=== PATIENT | male | born 1965 | race Caucasian/White ===

== ENCOUNTER 2017-07-21 14:15 | Emergency (ER) | payer MEDICAID ==
[~2017-07-21] VITALS: Ht 193 cm; Wt 65.5 kg
[2017-07-21 14:26] VITALS: BP 137/79
[2017-07-21] MEDS ORDERED: KETOROLAC 30 MG/1 ML IM ONE (15:00)
[2017-07-21] MEDS ORDERED: KETOROLAC 30 MG/1 ML ONE (15:01)
[2017-07-22] MEDS ORDERED: IBUP200C5 PO (14:01)
== END 2017-07-21 15:17 | disposition home or self-care (01) ==
LOC: ED 15:11
DX: K02.9 Dental caries, unspecified (principal); Z59.9 Problem related to housing and economic circumstances, unspecified
CPT/HCPCS: 96372; 99283; J1885

== ENCOUNTER 2017-07-22 13:49 | Emergency (ER) | payer MEDICAID ==
[~2017-07-22] VITALS: Ht 193 cm; Wt 68.5 kg
[2017-07-22] MEDS ORDERED: IBUP200C5 PO (14:01)
[2017-07-22] MEDS ORDERED: KETOROLAC 30 MG/1 ML ONE (14:24)
[2017-07-22] MEDS ORDERED: KETOROLAC 30 MG/1 ML IM ONE (14:30)
[2017-07-22 14:51] VITALS: BP 146/88
== END 2017-07-22 14:57 | disposition home or self-care (01) ==
LOC: ED 14:49
DX: K02.9 Dental caries, unspecified (principal); F17.210 Nicotine dependence, cigarettes, uncomplicated
CPT/HCPCS: 96372; 99283; J1885

== ENCOUNTER 2017-09-25 14:15 | Emergency (ER) | payer MEDICAID ==
[~2017-09-25] VITALS: Ht 185.4 cm; Wt 64.5 kg
[~2017-09-25 14:15] MED LIST: IBUP200C5 PO
[2017-09-25 14:25] VITALS: BP 122/74
== END 2017-09-25 14:33 | disposition home or self-care (01) ==
LOC: ED 14:27
DX: B86 Scabies (principal); F17.200 Nicotine dependence, unspecified, uncomplicated
CPT/HCPCS: 99283

== ENCOUNTER 2017-10-18 05:24 | Emergency (ER) | payer MEDICAID ==
[~2017-10-18] VITALS: Ht 193 cm; Wt 65.8 kg
[~2017-10-18 05:24] MED LIST changes: +IBUP-1623 PO; -IBUP200C5 PO
[2017-10-18 05:27] VITALS: BP 137/72
== END 2017-10-18 07:19 | disposition home or self-care (01) ==
LOC: ED 05:42
DX: J44.1 Chronic obstructive pulmonary disease with (acute) exacerbation (principal)
CPT/HCPCS: 71045; 99283

== ENCOUNTER 2018-09-25 13:11 | Emergency (ER) | payer MEDICAID ==
[~2018-09-25] VITALS: Ht 193 cm; Wt 73.0 kg
[2018-09-25 15:43] VITALS: BP 117/65
== END 2018-09-25 15:46 | disposition home or self-care (01) ==
LOC: ED 13:36
DX: K25.3 Acute gastric ulcer without hemorrhage or perforation (principal); F17.200 Nicotine dependence, unspecified, uncomplicated; K21.9 Gastro-esophageal reflux disease without esophagitis
CPT/HCPCS: 36415; 80053; 83690; 84484; 85025; 93005; 99284

== ENCOUNTER 2018-10-16 19:32 | Emergency (ER) | payer MEDICAID ==
[~2018-10-16] VITALS: Ht 193 cm; Wt 72.0 kg
[2018-10-16 21:19] VITALS: BP 130/74
== END 2018-10-16 21:34 | disposition home or self-care (01) ==
LOC: ED 21:23
DX: M25.512 Pain in left shoulder (principal); J44.9 Chronic obstructive pulmonary disease, unspecified; F17.200 Nicotine dependence, unspecified, uncomplicated
CPT/HCPCS: 93005; 99283

== ENCOUNTER 2019-04-03 18:38 | Emergency (ER) | payer MEDICAID ==
[~2019-04-03] VITALS: Ht 193 cm; Wt 67.0 kg
--- NOTE | 2019-04-03 19:04 | NUR ---
pt to room from lobby
--- NOTE | 2019-04-03 19:12 | NUR ---
C/O INTERMITTENT ABD PAIN RADIATING TO BACK. NO MED TAKEN FOR SX TODAY. LAST ORAL INTAKE: 1 HR [employer]. DENIES ETOH INTAKE.
[2019-04-03 20:03] LABS: BASOPHILS # (AUTO) 0.09 x10^3/uL (0-0.1); BASOPHILS % (AUTO) 1 % (0-1); EOSINOPHILS # (AUTO) 0.35 x10^3/uL (0-0.4); EOSINOPHILS % (AUTO) 4 % (1-7); LYMPHOCYTES # (AUTO) 1.42 x10^3/uL (1-3.4); LYMPHOCYTES % (AUTO) 17 % (22-44); MD NO; MEAN CORPUSCULAR HEMOGLOBIN 31.4 pg (27.5-34.5); MEAN CORPUSCULAR HGB CONC 32.9 g/dL (33.2-36.2); MEAN CORPUSCULAR VOLUME 95.6 fL (81-97); MEAN PLATELET VOLUME 7.5 fL (7.4-10.4); MONOCYTES # (AUTO) 0.42 x10^3/uL (0.2-0.8); MONOCYTES % (AUTO) 5 % (2-9); NEUTROPHILS # (AUTO) 6.26 x10^3/uL (1.8-6.8); NEUTROPHILS % (AUTO) 73 % (42-75); PLATELET COUNT 355 x10^3/uL (130-400); RED BLOOD COUNT 4.09 x10^6/uL (4.38-5.82); RED CELL DISTRIBUTION WIDTH 13.9 % (9.4-14.8)
[2019-04-03 20:04] LABS: ALANINE AMINOTRANSFERASE 11 U/L (12-78); ALBUMIN 3.2 g/dL (3.4-5.0); ANION GAP 5 mmol/L (5-15); CALCIUM 8.7 mg/dL (8.5-10.1); CHLORIDE 108 mmol/L (98-107); CREATININE 1.03 mg/dL (0.7-1.3)
[2019-04-03 20:08] LABS: ALKALINE PHOSPHATASE 60 U/L (45-117); BILIRUBIN,TOTAL 0.3 mg/dL (0.2-1.0); TOTAL PROTEIN 6.9 g/dL (6.4-8.2); TROPONIN I < 0.015 ng/mL (0.000-0.045)
[2019-04-03 20:16] VITALS: BP 117/67
--- NOTE | 2019-04-03 20:45 | NUR ---
PT REQUESTED "SOMETHING TO SETTLE MY STOMACH". WILL NOTIFY DR ANDERSON.
[2019-04-03] MEDS ORDERED: MAALOX/HYOSCYAMINE/LIDOCAINE 45 ML BTL ONE (20:52)
[2019-04-03] MEDS ORDERED: MAALOX/HYOSCYAMINE/LIDOCAINE 45 ML BTL PO ONE (21:00)
== END 2019-04-03 21:05 | disposition home or self-care (01) ==
LOC: ED 20:54
DX: K21.0 Gastro-esophageal reflux disease with esophagitis (principal); J44.9 Chronic obstructive pulmonary disease, unspecified; F17.200 Nicotine dependence, unspecified, uncomplicated; Z87.11 Personal history of peptic ulcer disease
CPT/HCPCS: 36415; 71045; 80053; 83690; 84484; 85025; 93005; 99284

== ENCOUNTER 2019-08-22 23:21 | Emergency (ER) | payer MEDICAID ==
[~2019-08-22] VITALS: Ht 193 cm; Wt 64.3 kg
--- NOTE | 2019-08-22 23:36 | NUR ---
PT IN [facility] WITH DR. SHARMA AT FOR PT HISTORY AND ASSESSMENT. AWAITING ORDERS AT THIS TIME. PT WITH CALL LIGHT WITHIN REACH.
--- NOTE | 2019-08-22 23:45 | NUR ---
PT ATTACHED TO CARDIAC AND VS MONITORS. VSS AT THIS TIME.
[2019-08-22 23:59] LABS: BASOPHILS # (AUTO) 0.04 x10^3/uL (0-0.1); BASOPHILS % (AUTO) 1 % (0-1); EOSINOPHILS # (AUTO) 0.29 x10^3/uL (0-0.4); EOSINOPHILS % (AUTO) 4 % (1-7); LYMPHOCYTES # (AUTO) 1.66 x10^3/uL (1-3.4); LYMPHOCYTES % (AUTO) 23 % (22-44); MD NO; MEAN CORPUSCULAR HEMOGLOBIN 30.8 pg (27.5-34.5); MEAN CORPUSCULAR HGB CONC 32.8 g/dL (33.2-36.2); MEAN PLATELET VOLUME 7.4 fL (7.4-10.4); MONOCYTES # (AUTO) 0.48 x10^3/uL (0.2-0.8); MONOCYTES % (AUTO) 7 % (2-9); NEUTROPHILS # (AUTO) 4.66 x10^3/uL (1.8-6.8); NEUTROPHILS % (AUTO) 65 % (42-75); PLATELET COUNT 339 x10^3/uL (130-400); RED BLOOD COUNT 4.02 x10^6/uL (4.38-5.82)
[2019-08-23 00:11] LABS: ALBUMIN 3.1 g/dL (3.4-5.0); ANION GAP 4 mmol/L (5-15); CALCIUM 8.5 mg/dL (8.5-10.1); CHLORIDE 107 mmol/L (98-107)
[2019-08-23 00:16] LABS: ALANINE AMINOTRANSFERASE 12 U/L (12-78); ALKALINE PHOSPHATASE 53 U/L (45-117); BILIRUBIN,TOTAL 0.5 mg/dL (0.2-1.0); CREATININE 0.86 mg/dL (0.7-1.3); TOTAL PROTEIN 7.1 g/dL (6.4-8.2); TROPONIN I < 0.015 ng/mL (0.000-0.045)
[2019-08-23 00:25] VITALS: BP 106/81
--- NOTE | 2019-08-23 00:42 | NUR ---
PT D/C WITH D/C SUMMARY AND SCRIPTS. ALL QUESTIONS ANSWERED. PT PIV D/C WITH TIP INTACT. PT DENIES ANY OTHER NEEDS PERTAINING TO THIS VISIT. PT AMBULATES TO REGISTRATION DESK WITH STEADY GAIT FOR D/C HOME.
== END 2019-08-23 01:11 | disposition home or self-care (01) ==
LOC: ED 23:35
DX: R07.89 Other chest pain (principal); R05 Cough; R94.31 Abnormal electrocardiogram [ECG] [EKG]; K21.9 Gastro-esophageal reflux disease without esophagitis; J44.9 Chronic obstructive pulmonary disease, unspecified; Z87.11 Personal history of peptic ulcer disease
CPT/HCPCS: 36415; 71045; 80053; 84484; 85025; 93005; 99285

== ENCOUNTER 2019-09-27 00:53 | Emergency (ER) | payer MEDICAID ==
[~2019-09-27] VITALS: Ht 193 cm; Wt 73.0 kg
[2019-09-27 00:55] VITALS: BP 123/60
--- NOTE | 2019-09-27 00:59 | NUR ---
Pt presents to ed c/o abd pain "it just feels like im hungry all the time, no matter how much i eat." States hx of ulcers and "i should be taking an antacids, but i dont." Denies bloody stool or emesis. Denies hypotensive s/s. Monitoring applied. VSS. Call light within reach.
--- NOTE | 2019-09-27 01:16 | NUR ---
Pt given bag of chips and sandwich per ERP request. Pt asked if he wants pain medicine and he said yes "i want food for the pain."
--- NOTE | 2019-09-27 01:22 | NUR ---
Report to Shashank barron.
[2019-09-27 01:27] LABS: BASOPHILS # (AUTO) 0.03 x10^3/uL (0-0.1); BASOPHILS % (AUTO) 1 % (0-1); EOSINOPHILS # (AUTO) 0.43 x10^3/uL (0-0.4); EOSINOPHILS % (AUTO) 7 % (1-7); LYMPHOCYTES # (AUTO) 1.82 x10^3/uL (1-3.4); LYMPHOCYTES % (AUTO) 28 % (22-44); MD NO; MEAN CORPUSCULAR HEMOGLOBIN 30.8 pg (27.5-34.5); MEAN CORPUSCULAR HGB CONC 32.6 g/dL (33.2-36.2); MEAN PLATELET VOLUME 7.1 fL (7.4-10.4); MONOCYTES # (AUTO) 0.48 x10^3/uL (0.2-0.8); MONOCYTES % (AUTO) 7 % (2-9); NEUTROPHILS # (AUTO) 3.73 x10^3/uL (1.8-6.8); NEUTROPHILS % (AUTO) 58 % (42-75); PLATELET COUNT 407 x10^3/uL (130-400); RED BLOOD COUNT 4.39 x10^6/uL (4.38-5.82)
[2019-09-27 01:37] LABS: ALANINE AMINOTRANSFERASE 24 U/L (12-78); ANION GAP 5 mmol/L (5-15); CALCIUM 8.3 mg/dL (8.5-10.1); CHLORIDE 107 mmol/L (98-107)
[2019-09-27 01:39] LABS: ALKALINE PHOSPHATASE 48 U/L (45-117); BILIRUBIN,TOTAL 0.1 mg/dL (0.2-1.0)
== END 2019-09-27 02:02 | disposition home or self-care (01) ==
LOC: ED 01:15
DX: K21.9 Gastro-esophageal reflux disease without esophagitis (principal); R10.84 Generalized abdominal pain; F17.210 Nicotine dependence, cigarettes, uncomplicated; J44.9 Chronic obstructive pulmonary disease, unspecified; Z72.9 Problem related to lifestyle, unspecified
CPT/HCPCS: 36415; 80053; 83690; 85025; 99283; 99406

== ENCOUNTER 2019-09-27 06:08 | Emergency (ER) | payer MEDICAID ==
[~2019-09-27] VITALS: Ht 185.4 cm; Wt 65.9 kg
[2019-09-27] MEDS ORDERED: MAALOX/HYOSCYAMINE/LIDOCAINE 45 ML BTL ONE (06:56)
[2019-09-27] MEDS ORDERED: MAALOX/HYOSCYAMINE/LIDOCAINE 45 ML BTL PO ONE (07:00)
--- NOTE | 2019-09-27 07:02 | NUR ---
REPORT FROM AJAY PERALTA. PT MEDICATED PER ORDERS.
[2019-09-27 07:45] VITALS: BP 139/67
--- NOTE | 2019-09-27 07:45 | NUR ---
PT D/C'D PER ORDERS. GIVEN FOOD PRIOR TO D/C. PT HAS ALL OWN BELONGINGS UPON D/C.
== END 2019-09-27 07:47 | disposition home or self-care (01) ==
LOC: ED 06:59
DX: K29.00 Acute gastritis without bleeding (principal); K21.9 Gastro-esophageal reflux disease without esophagitis; J44.9 Chronic obstructive pulmonary disease, unspecified
CPT/HCPCS: 99283

== ENCOUNTER 2019-11-10 05:21 | Emergency (ER) | payer MEDICAID ==
[~2019-11-10] VITALS: Ht 193 cm; Wt 65.0 kg
--- NOTE | 2019-11-10 05:29 | NUR ---
PT BIB [facility] FOR EPIGASTRIC PAIN. PT HAS A HISTORY OF GERD, WAS SEEN HERE RECCENTLY FOR SAME THING, PT STATES MEDICATIONS GOT STOLEN. C/O 10/10 EPIGASTRIC PAIN. GI/ FUNCTION UNCHANGED ACCORDING TO PT PT PLACED ON SPO2/BP MONITORING. VSS. WCTM. WAITING FOR ERP EVAL.
[2019-11-10] MEDS ORDERED: MAALOX/HYOSCYAMINE/LIDOCAINE 45 ML BTL ONE (05:51)
[2019-11-10] MEDS ORDERED: FAMOTIDINE 20 MG TABLET ONE (05:51)
[2019-11-10] MEDS ORDERED: MAALOX/HYOSCYAMINE/LIDOCAINE 45 ML BTL PO ONE (06:00)
[2019-11-10] MEDS ORDERED: FAMOTIDINE 20 MG TABLET PO ONE (06:00)
[2019-11-10 06:04] VITALS: BP 139/70
--- NOTE | 2019-11-10 06:30 | NUR ---
Patient given discharge instructions and they have confirmed that they understand the instructions. Patient ambulatory with steady gait. DENIES ADDITIONAL NEEDS OR QEUSTIONS. NO BELONGINGS LEFT IN ROOM AT [facility].
== END 2019-11-10 06:33 | disposition home or self-care (01) ==
LOC: ED 06:19
DX: K21.9 Gastro-esophageal reflux disease without esophagitis (principal); I45.10 Unspecified right bundle-branch block; G89.29 Other chronic pain; R10.13 Epigastric pain; R11.0 Nausea; J44.9 Chronic obstructive pulmonary disease, unspecified
CPT/HCPCS: 93005; 99283

== ENCOUNTER 2019-11-29 08:14 | Emergency (ER) | payer MEDICAID ==
[~2019-11-29] VITALS: Ht 193 cm; Wt 64.4 kg
[2019-11-29 08:15] VITALS: BP 107/57
[2019-11-29] MEDS ORDERED: ASPIRIN 81 MG TABLET CHEW ONE (08:56)
[2019-11-29] MEDS ORDERED: ASPIRIN 81 MG TABLET CHEW PO ONE (09:00)
[2019-11-29 09:20] LABS: BASOPHILS # (AUTO) 0.03 x10^3/uL (0-0.1); BASOPHILS % (AUTO) 1 % (0-1); EOSINOPHILS # (AUTO) 0.39 x10^3/uL (0-0.4); EOSINOPHILS % (AUTO) 8 % (1-7); LYMPHOCYTES # (AUTO) 1.02 x10^3/uL (1-3.4); LYMPHOCYTES % (AUTO) 22 % (22-44); MD NO; MEAN CORPUSCULAR HEMOGLOBIN 30.5 pg (27.5-34.5); MEAN CORPUSCULAR HGB CONC 32.2 g/dL (33.2-36.2); MONOCYTES # (AUTO) 0.32 x10^3/uL (0.2-0.8); MONOCYTES % (AUTO) 7 % (2-9); NEUTROPHILS # (AUTO) 2.82 x10^3/uL (1.8-6.8); NEUTROPHILS % (AUTO) 62 % (42-75); PLATELET COUNT 371 x10^3/uL (130-400); RED BLOOD COUNT 4.23 x10^6/uL (4.38-5.82); RED CELL DISTRIBUTION WIDTH 13.8 % (9.4-14.8)
[2019-11-29 09:34] LABS: ALBUMIN 3.1 g/dL (3.4-5.0); ANION GAP 4 mmol/L (5-15); CALCIUM 8.7 mg/dL (8.5-10.1); CHLORIDE 110 mmol/L (98-107)
[2019-11-29 09:38] LABS: CREATININE 0.86 mg/dL (0.7-1.3); TROPONIN I < 0.015 ng/mL (0.000-0.045)
== END 2019-11-29 10:33 | disposition home or self-care (01) ==
LOC: ED 09:09
DX: R07.89 Other chest pain (principal); F17.200 Nicotine dependence, unspecified, uncomplicated; Y04.0XXA Assault by unarmed brawl or fight, initial encounter; Y92.410 Unspecified street and highway as the place of occurrence of the external cause; Y99.8 Other external cause status; Y93.89 Activity, other specified
CPT/HCPCS: 36415; 71045; 80048; 82040; 84484; 85025; 93005; 99285

== ENCOUNTER 2020-07-23 22:09 | Emergency (ER) | payer MEDICAID ==
[~2020-07-23] VITALS: Ht 162.6 cm; Wt 69.1 kg
[2020-07-23 22:16] VITALS: BP 139/69
--- NOTE | 2020-07-23 22:24 | NUR ---
AMIRAH [place] FROM 09/10. PT C/O ABD PAIN, N/V. SEEN THIS AM AT [facility] FOR SAME. CROCHE[facility]: FSBG 129, PT REFUSED ZOFRAN "IT CAUSES CANCER". PT CONNECTED TO MONITORING. PT MOANING LOUDLY AND YELLING ANSWERS TO QUESTIONS. PT REFUSED TO GET INTO GOWN. PT COMPLIANT WITH CARE, BUT RUDE ABOUT IT.
[2020-07-23] MEDS ORDERED: OMEPRAZOLE 20 MG CAPSULE.DR PO ONE (22:30)
[2020-07-23] MEDS ORDERED: MAALOX/HYOSCYAMINE/LIDOCAINE 45 ML BTL PO ONE ×2 (22:30→23:30)
[2020-07-23] MEDS ORDERED: OMEPRAZOLE 20 MG CAPSULE.DR ONE (22:48)
[2020-07-23] MEDS ORDERED: MAALOX/HYOSCYAMINE/LIDOCAINE 45 ML BTL ONE ×2 (22:48→23:29)
--- NOTE | 2020-07-23 22:51 | NUR ---
PT WAS SLEEPING WHEN THIS RN ENTERED ROOM. PT OXYGEN LEVEL 87% RA, PT PLACED ON OXYGN 2L VIA NC. OXYGEN 97%. PT REFUSED MEDS. "THEY DON'T HELP. THEY GAVE ME THE SAME STUFF AT [facility] THREE TIMES AND IT DOESN'T WORK". ERMD NOTIFIED. REPORT GIVEN TO ARELI PERALTA.
--- NOTE | 2020-07-23 22:55 | NUR ---
report from lorelei barron
--- NOTE | 2020-07-23 23:31 | NUR ---
PT YELLING AND LAYING ON STOMACH WITH FEET DANGLING OFF GURNEY. PT SCREAMING "OKAY FINE GIVE IT TO ME, GIVE ME THE GI COCKTAIL EVEN THOUGH IT DOESN'T WORK". DR MICHAEL RE ORDERED MED AGAIN.
--- NOTE | 2020-07-24 00:13 | NUR ---
pt much more calm, now saying "thanks" and "I'm sorry for my behvaior, I normally don't act like that, I just wasn't feeling well". pt with steady gait to dc desk
== END 2020-07-24 00:18 | disposition home or self-care (01) ==
LOC: ED 22:35
DX: K29.00 Acute gastritis without bleeding (principal); K21.9 Gastro-esophageal reflux disease without esophagitis; J44.9 Chronic obstructive pulmonary disease, unspecified; F17.210 Nicotine dependence, cigarettes, uncomplicated
CPT/HCPCS: 99406

== ENCOUNTER 2020-07-24 05:34 | Emergency (ER) | payer MEDICAID ==
[~2020-07-24] VITALS: Ht 180.3 cm; Wt 85.0 kg
--- NOTE | 2020-07-24 05:37 | NUR ---
PATIENT BIB [facility]. HE IS ANGRY SWEARING AND USING PROFANITIES. HE HAS DISCHARGE PAPERWORK FROM HERE WITH MEDS THAT HE CLAIMS HE COULDN'T GET FILLED. HE ARRIVES WITH SAME COMPLAINTS DC PAPERWORK: ABDOMINAL PAIN AND N/V. IN BED, BLANKET, GOWN, RAILS UP, MONITOR.
[2020-07-24 05:38] VITALS: BP 139/69
--- NOTE | 2020-07-24 06:16 | NUR ---
patient screaming and pacing about room, laying on floor. called security.
[2020-07-24] MEDS ORDERED: MAALOX/HYOSCYAMINE/LIDOCAINE 45 ML BTL ONE (06:19)
[2020-07-24] MEDS ORDERED: DICYCLOMINE 10 MG/ML, 2ML ONE (06:19)
[2020-07-24] MEDS ORDERED: PROMETHAZINE 25 MG/ML, 1ML ONE (06:19)
--- NOTE | 2020-07-24 06:24 | NUR ---
PATIENT THREW UP ALL OVER FLOOR MOSTLY LIQUID CLEAR. SCREAMING. RESISTING CARE
--- NOTE | 2020-07-24 06:29 | NUR ---
PATIENT GOING TO RADIOLOGY
[2020-07-24] MEDS ORDERED: PROMETHAZINE 25 MG/ML, 1ML IM ONE (06:30)
[2020-07-24] MEDS ORDERED: DICYCLOMINE 10 MG/ML, 2ML IM ONE (06:30)
[2020-07-24] MEDS ORDERED: MAALOX/HYOSCYAMINE/LIDOCAINE 45 ML BTL PO ONE (06:30)
--- NOTE | 2020-07-24 06:48 | NUR ---
RECEIVED REPORT FROM SUZANNA PERALTA, PLAN OF CARE DISCUSSED.
--- NOTE | 2020-07-24 07:02 | NUR ---
ATTEMPTED TO TAKE VS, PT STATES, "LET ME TALK -UNT". PT PULLED AT CORDS, EXPAINED HE CAN LEAVE. PT LEFT. NOTIFIED, GAIT STEADY
== END 2020-07-24 07:04 | disposition left against medical advice (07) ==
LOC: ED 06:17
DX: R10.13 Epigastric pain (principal); J44.9 Chronic obstructive pulmonary disease, unspecified; R11.2 Nausea with vomiting, unspecified; K21.9 Gastro-esophageal reflux disease without esophagitis; F17.200 Nicotine dependence, unspecified, uncomplicated
CPT/HCPCS: 74018; 96372; 99284; J0500; J2550